=== PATIENT | male | born 1945 | race Caucasian/White ===

== ENCOUNTER 2018-09-11 07:59 | Day surgery (SDC) | payer MEDICARE ==
[2018-09-11] VITALS (11 sets, daily range): BP systolic 149–220; BP diastolic 82–127
[~2018-09-11] VITALS: Ht 170.2 cm; Wt 88.5 kg
--- NOTE | 2018-09-11 06:57 | Anethesia Preoperative Eval ---
Anesthesia Pre-op PMH/ROS General Date of Evaluation: Sep 11, 2018 Time of Evaluation: 06:56 Anesthesiologist: maegan ASA Score: ASA 3 Mallampati Score Class I : Soft palate, uvula, fauces, pillars visible Class II: Soft palate, uvula, fauces visible Class III: Soft palate, base of uvula visible Class IV: Only hard plate visible Mallampati Classification: Class II Surgeon: gretchen Diagnosis: gerd, colon screening Surgical Procedure: egd/colonoscopy Anesthesia History: none Social History: current smoker Family History: no anesthesia problems Allergies: Coded Allergies: No Known Allergies (Unverified , 09/11/18) Medications: see eMAR Patient NPO?: Yes Past Medical History Cardiovascular: Reports: HTN Gastrointestinal/Genitourinary: Reports: GERD, other - ulcer HEENT: Reports: cataract (L), cataract (R), other - hole in right ear Hematology/Immune: Reports: anemia Musculoskeletal/Integumentary: Reports: OA Anesthesia Pre-op Phys. Exam Physician Exam Constitutional: NAD Neurologic: CN 2-12 intact Cardiovascular: RRR Respiratory: CTA Gastrointestinal: S/NT/ND Airway Exam Mallampati Score: Class II MO: limited Neck: flexible TMD: 2fb ROM: limited Anesthesia Pre-op A/P Risk Assessment & Plan Assessment: asa3 Plan: mac Status Change Before Surgery: No Pre-Antibiotics Drug: Brianna William MD Sep 11, 2018 06:57
[~2018-09-11 07:59] MED LIST: AMLODIPINE BES2.5 MG ORAL; AMOX TR-K CLV1 EAC2 ORAL; ASPIR 8181 MG ORAL; Atropine Inj 1mg/10ml Syr IV PRN; CATAPRES0.1 MG ORAL; CORTISPORIN10 ML RIGHT EAR; DiphenhydrAMINE 50mg/ml Inj IVP PRN; Midazolam 2mg/2ml Inj IVP PRN; NORVASC10 MG ORAL; POTASSIUM99 M4 PO; fentaNYL 100 mcg/2 mL IV PRN
[2018-09-11 09:29] LABS: BASOPHILS % (AUTO) 0.7 % (0.0-2.0); EOSINOPHILS % (AUTO) 0.6 % (0.0-3.0); HEMOGLOBIN 14.1 G/DL (14.2-18.0); LYMPHOCYTES % (AUTO) 16.7 % (20.0-45.0); MEAN CORPUSCULAR VOLUME 83 FL (80-99); MONOCYTES % (AUTO) 8.5 % (1.0-10.0); NEUTROPHILS % (AUTO) 73.5 % (45.0-75.0); PLATELET COUNT 264 K/UL (150-450); RED BLOOD COUNT 5.04 M/UL (4.70-6.10); RED CELL DISTRIBUTION WIDTH 14.7 % (11.6-14.8); WHITE BLOOD COUNT 8.4 K/UL (4.8-10.8)
--- NOTE | 2018-09-11 10:05 | Pre-Procedure Note/Attestation ---
Pre-Procedure Note/Attestation Complete Prior to Procedure Planned Procedure: not applicable Procedure Narrative: esophagogastroduodenoscopy and colonoscopy Indications for Procedure Pre-Operative Diagnosis: screening colon, GERD Attestation I attest that I discussed the nature of the procedure; its benefits; risks and complications; and alternatives (and the risks and benefits of such alternatives ), prior to the procedure, with the patient (or the patient's legal senior sales representative). I attest that, if there was a reasonable possibility of needing a blood transfusion, the patient (or the patient's legal senior sales representative) was given the [facility] standardized written summary, pursuant to the [place] Blood Safety Act ([place] Health and Safety Code # 1645, as amended). I attest that I re-evaluated the patient just prior to the surgery and that there has been no change in the patient's H&P, except as documented below: eBrnard Stevens MD Sep 11, 2018 10:05
--- NOTE | 2018-09-11 10:06 | Short Stay Surgery H&P ---
History of Present Illness History of Present Illness Chief Complaint see recent office note HPI Krista Lee is a 73 year old male who was admitted on for Colon Screening, Gerd Patient History Allergies: Coded Allergies: No Known Allergies (Unverified , 09/11/18) Medication History Scheduled Amlodipine Besylate* (Amlodipine Besylate*), Unknown Dose ORAL DAILY, (Reported) Aspirin* (Aspir 81*), 81 MG ORAL DAILY, (Reported) Clonidine Hcl* (Catapres*), 0.1 MG ORAL DAILY, (Reported) Miscellaneous Medications Potassium Gluconate (Potassium), 60 MG PO, (Reported) Discontinued Medications Amlodipine Besylate (Norvasc), 10 MG ORAL DAILY, (Reported) Discontinued Reason: Pt stopped taking med Amoxicillin/Potassium Clav 875-125 Mg Tab* (Amox Tr-K Clv 875-125 Mg Tab*), 875 MG ORAL EVERY 12 HOURS Discontinued Reason: Pt stopped taking med Neomycin/Polymyxin/Hydrocort (Anserymv-Bvhnfzzdi-Vg Ear Soln), 4 DROP RIGHT EAR THREE TIMES A DAY Discontinued Reason: Pt stopped taking med Physical Exam Vital Signs Last Vital Signs Date Time Temp Pulse Resp B/P (MAP) Pulse Ox O2 Delivery O2 Flow Rate FiO2 09/11/18 09:17 Room Air 09/11/18 08:36 179/84 09/11/18 08:33 98.0 59 14 97 Labs Laboratory Tests Test 09/11/18 07:00 White Blood Count 8.4 K/UL (4.8-10.8) Red Blood Count 5.04 M/UL (4.70-6.10) Hemoglobin 14.1 G/DL (14.2-18.0) L Hematocrit 42.0 % (42.0-52.0) Mean Corpuscular Volume 83 FL (80-99) Mean Corpuscular Hemoglobin 28.1 PG (27.0-31.0) Mean Corpuscular Hemoglobin Concent 33.7 G/DL (32.0-36.0) Red Cell Distribution Width 14.7 % (11.6-14.8) Platelet Count 264 K/UL (150-450) Mean Platelet Volume 5.8 FL (6.5-10.1) L Neutrophils (%) (Auto) 73.5 % (45.0-75.0) Lymphocytes (%) (Auto) 16.7 % (20.0-45.0) L Monocytes (%) (Auto) 8.5 % (1.0-10.0) Eosinophils (%) (Auto) 0.6 % (0.0-3.0) Basophils (%) (Auto) 0.7 % (0.0-2.0) Iron Level Pending Unsaturated Iron Binding Pending Plan Attestation Are the patient's medical conditions optimized for surgery? Bernard Stevens MD Sep 11, 2018 10:06
[2018-09-11] MEDS ORDERED: Propofol 200mg/20ml IV ONE (10:30)
[2018-09-11] MEDS ORDERED: Lidocaine 1% MPF 10mg/ml 5ml ONE (10:30)
[2018-09-11 11:00] LABS: % IRON SATURATION 32 % (15-50); IRON 115 ug/dL (50-175); TOTAL IRON BINDING CAPACITY 355 ug/dL (250-450)
--- NOTE | 2018-09-11 11:00 | Endoscopy Procedure Note ---
Endoscopy Procedure Note General Indication for Procedure: screening colon, GERD Procedures Performed: EGD, colonoscopy Operative Findings/Diagnosis: 6 polyps Specimen: yes Pt Tolerated Procedure Well: Yes Estimated Blood Loss: none Anesthesia Anesthesiologist: maegan Anesthesia: MAC Inserted Devices Implant(s) used?: No Quality Quality of Bowel Preparation: Good Did scope reach the cecum?: Yes Was there any complications?: No GI Core Measures 50 yrs or older w/o bx or poly: No 10yrs. F/U not recommended: Yes If not recommended, why?: Above average risk 10 yrs. F/U needed: Yes 18 years or older w/prev. colo: No Bernard Stevens MD Sep 11, 2018 11:00
--- NOTE | 2018-09-11 12:42 | Immediate Post-Op Evaluation ---
Immediate Post-Op Evalulation Immediate Post-Op Evalulation Procedure: egd/colonoscopy/bx Date of Evaluation: Sep 11, 2018 Time of Evaluation: 11:24 IV Fluids: 150ml 0.9ns Blood Products: none Estimated Blood Loss: negligible Blood Pressure Systolic: 211 Blood Pressure Diastolic: 127 Pulse Rate: 71 Respiratory Rate: 18 O2 Sat by Pulse Oximetry: 100 Temperature (Fahrenheit): 97.0 Pain Score (1-10): 0 Nausea: No Vomiting: No Complications none Patient Status: awake, reacts, patent Hydration Status: adequate Drug: Brianna William MD Sep 11, 2018 12:42
--- NOTE | 2018-09-11 12:44 | 48 Hour Post Anesthesia Eval ---
Post Anesthesia Evaluation Procedure: egd/colonoscopy/bx Date of Evaluation: Sep 11, 2018 Time of Evaluation: 11:26 Blood Pressure Systolic: 160 0: 100 Pulse Rate: 68 Respiratory Rate: 18 Temperature (Fahrenheit): 97.7 O2 Sat by Pulse Oximetry: 100 Airway: patent Nausea: No Vomiting: No Pain Intensity: 0 Hydration Status: adequate Cardiopulmonary Status: stable Mental Status/LOC: patient returned to baseline Post-Anesthesia Complications: none Follow-up care needed: N/A Brianna Harper MD Sep 11, 2018 12:44
--- NOTE | 2018-09-11 15:15 | Procedure Note ---
DATE OF PROCEDURE: 09/11/2018 SURGEON: Bernard Stevens M.D. REFERRING PHYSICIAN: Bernard Adames M.D. PROCEDURE: Upper endoscopy with biopsy and colonoscopy with snare polypectomy and biopsy. ANESTHESIA: Per Dr. Casey. INSTRUMENT: Olympus adult flexible upper endoscope and colonoscope INDICATION: Screening colonoscopy evaluation and chronic GERD. REASON FOR PROCEDURE: The procedure, risks, benefits, and possible consequences, including hemorrhage, aspiration, perforation and infection, and alternative treatments, were explained to the patient/legal guardian by Dr. Bernard Stevens and the patient/legal guardian understood and accepted these risks. DESCRIPTION OF PROCEDURE: After informed consent was obtained and the patient was adequately sedated, Olympus upper endoscope was advanced from the mouth into the second portion of duodenum and retroflexion was performed in the stomach. The patient has evidence of minimal distal esophagitis. No obvious ulceration, no mass. In the stomach, there was diffuse gastritis. Random biopsies from antrum and body was obtained to rule out H. pylori infection. Otherwise, the rest of the upper endoscopic examination was within normal limits. At this time, the upper endoscope was retrieved and the patient was turned over for colonoscopy. First, rectal examination performed, which was positive for internal hemorrhoids. Then, the scope was advanced from the rectum into the cecum documented by the appendiceal orifice, ileocecal valve, and right upper quadrant of palpation. Quality of prep was good. The patient had a total of six polyps, two in the ascending, two in the transverse, and two in the rectosigmoid area. Two of them in the transverse was removed with a snare. The rest were removed with the cold biopsy forceps technique. These polyps all were less than 1 cm in size. The patient has also scattered diverticulosis both in the right and left colon. The retroflexion of rectum showed evidence of medium-sized internal hemorrhoids. SUMMARY OF FINDINGS: 1. Minimal distal esophagitis. 2. Gastritis, status post biopsy. 3. Six colonic polyps removed, see above for details. 4. Internal hemorrhoids. 5. Diverticulosis. RECOMMENDATIONS: Follow up biopsy results and treat accordingly. Given six polyps, we recommend repeat colonoscopy in three years. I want to thank Dr. Bernard Adames for this kind referral. Bernard Stevens M.D. DR: BILL JOB#: [id number] CC: Bernard Adames M.D.; Fax#: [phone]
--- NOTE | 2018-09-11 17:49 | Cardiology Report ---
APPROVED REPORT EKG Measurement Heart [id number] VT [id number] [id number] Sinus bradycardia Voltage criteria for left ventricular hypertrophy Abnormal ECG
== END 2018-09-11 13:00 | disposition home or self-care (01) ==
LOC: GAS 07:59
DX: Z12.11 Encounter for screening for malignant neoplasm of colon (principal); K57.30 Diverticulosis of large intestine without perforation or abscess without bleeding; K64.8 Other hemorrhoids; D12.2 Benign neoplasm of ascending colon; D12.3 Benign neoplasm of transverse colon; K63.5 Polyp of colon; K21.9 Gastro-esophageal reflux disease without esophagitis; K20.9 Esophagitis, unspecified; K29.50 Unspecified chronic gastritis without bleeding; I10 Essential (primary) hypertension; M19.90 Unspecified osteoarthritis, unspecified site; D64.9 Anemia, unspecified; Z87.19 Personal history of other diseases of the digestive system; Z79.82 Long term (current) use of aspirin
CPT/HCPCS: 36415; 43239; 45380; 45385; 83540; 83550; 85025; 93005; J0360; J2704; 94003; 94150